=== PATIENT | male | born 1945 | race African-American/Black ===

== ENCOUNTER 2016-08-08 00:02 | Inpatient (IN) ==
[2016-08-08] MEDS ORDERED: ALUM/MAG/SIMETH/LIDO VISC 1:1 30 ML BOTTLE PO STA (00:40)
[2016-08-08] MEDS ORDERED: PANTOPRAZOLE 40 MG VIAL IV STA (00:40)
[2016-08-08] MEDS ORDERED: SODIUM CHLORIDE 0.9% 500 ML IV STA (00:40)
[2016-08-08] MEDS ORDERED: ONDANSETRON 4 MG/2 ML VIAL IV STA (00:40)
[2016-08-08] MEDS ORDERED: HYDROmorphone 2 MG/1 ML VIAL IV STA (00:40)
[2016-08-08] MEDS ORDERED: ONDANSETRON 4 MG/2 ML VIAL ONE (00:53)
[2016-08-08] MEDS ORDERED: PANTOPRAZOLE 40 MG VIAL IV ONE (00:53)
[2016-08-08] MEDS ORDERED: ALUM/MAG/SIMETH/LIDO VISC 1:1 30 ML BOTTLE PO ONE (00:54)
[2016-08-08] MEDS ORDERED: HYDROmorphone 2 MG/1 ML VIAL ONE (00:54)
[2016-08-08 01:26] LABS: Basophils % 0.2 % (0.0-0.8); Eosinophils % 0.5 % (0.00-10.9); Hematocrit 39.6 VOL% (42.0-52.0); Hemoglobin 13.2 GM/DL (14.0-18.0); Immature Granulocytes % 0.2 %; Immature Granulocytes Absolute 0.02 #; Lymphocytes # 0.7 10*3/uL (1.4-4.0); Lymphocytes % 8.1 % (21.2-54.2); Mean Corpuscular HGB Conc 33.3 GM/DL (32-36); Mean Corpuscular Hemoglobin 28 PG (27-34); Mean Corpuscular Volume 84.1 FL (87-102); Mean Platelet Volume 11.3 FL (9.6-12.0); Monocytes # 0.6 10*3/uL (0.11-0.8); Monocytes % 7.2 % (1.7-12.7); Neutrophils # 7.3 10*3/uL (1.4-7.4); Neutrophils % 83.8 % (38.7-73.9); Platelet Count 165 10*3/uL (130-400); Red Blood Count 4.71 10*6/uL (3.8-5.5); Red Cell Distribution Width 14.2 % (9.3-17.3); White Blood Count 8.7 10*3/uL (4.5-13.71)
[2016-08-08 01:30] LABS: Lactic Acid 1.2 MMOL/L (0.4-2.0)
[2016-08-08 01:33] LABS: Albumin 3.3 G/DL (3.4-5.0); Bilirubin,Total 3.2 MG/DL (0.2-1.0); Calcium 9.2 MG/DL (8.5-10.1); Magnesium 2.1 MG/DL (1.8-2.4); Osmolality,Calculated 289.7 MOS/KG (273-304); Potassium 3.8 MMOL/L (3.5-5.1); Troponin I Only 0.023 NG/ML (0.00-0.045)
--- NOTE | 2016-08-08 01:46 | Emergency Department Note ---
ITaisha Sierra, am scribing for, and in the presence of, Red Padilla MD 00:49. Randy Puga Charles R, MD, personally performed the services described in this documentation, ascribed by Debby Sumner in my presence, and it is both accurate and complete . Arrival - Arrival Chief Complaint: Abdominal / Flank Pain Stated Complaint: abd pain ED Nursing Triage Note: PT ARRIVES VIA EMS FROM HOME WITH COMPLAINTS OF ABD PAIN AFTER TAKING MAG CITRATE. STATES THAT HE HAS NOT HAD A BOWEL MOVEMENT IN THREE DAYS. PT DENIES ANY OTHER COMPLAINTS AT TIME OF TRIAGE. Mode of Arrival: Stretcher Limitations: No Limitations Source: Patient Time Seen by Provider: 08/08/16 00:28 - History of Present Illness HPI Narrative: Pt is a 71 y/o male that was brought to the ED via EMS with c/o abdomen pain that began today. Pt reports he has not had a BM in 3 days and his sxs occurred after taking magnesium citrate for BM. He denies citrate helping with BM. Pt also denies being able to pass gas. He reports it has happened before, and he has had previous bowel obstructions but no surgery for it. He denies vomiting or being constipated frequently. Pt states he had his prostate removed previously due to prostate CA but denies chemo or radiation. Pt's PCP is Dr. Howard. He has a PMHx of HTN, dyslipidemia, and Parkinson's disease but denies DM. No other complaints/pain in ED. Onset (ago): day(s) Consistency: constant Severity: mild Severity scale (1-10): 2 Allergies/Adverse Reactions: Allergies Allergy/AdvReac Type Severity Reaction Status Date / Time No Known Allergies Allergy Unverified 05/02/16 16:18 Home Medications: Home Medications Medication Instructions Recorded Confirmed Type Losartan/Hydrochlorothiazide 1 each PO DAILY 08/08/16 08/08/16 History [Losartan-Hctz 100-25 mg Tab] Rasagiline [Azilect] 1 mg PO DAILY 08/08/16 08/08/16 History Simvastatin 20 mg PO BEDTIME 08/08/16 08/08/16 History Review of System - Review of System 12 point system: reviewed and no additional remarkable complaints except as stated - Review of System Constitutional: Absent: chills, fever Respiratory: Absent: cough Cardiovascular: Absent: chest pain Gastrointestinal: Present: abdominal pain. Absent: vomiting Musculoskeletal: Absent: arm pain, back pain, leg pain, neck pain Skin: Absent: rash Neurological: Absent: headache Psychiatric: Absent: anxiety Medical,Surgical,& Family Hx - Medical History Neurology: History of: Parkinson's Disease Endocrine: History of: Dyslipidemia Genitourinary: History of: Prostate Problems - Surgical History Reproductive Surgeries: Surgical HX of;: Prostate Surgery (Prostate Ca) - Social History Smoking Status: Never smoker Frequency of Alcohol Use: None Type of Drug Use: None Exam Vital Signs: Vital Signs Temperature 98.7 F 08/08/16 00:02 Pulse Rate 90 08/08/16 01:26 Respiratory Rate 19 08/08/16 01:26 Blood Pressure 113/75 08/08/16 01:26 O2 Sat by Pulse Oximetry 94 L 08/08/16 01:26 - General General appearance: alert, in no apparent distress - Head Head exam: Present: atraumatic, normocephalic - Eye Eye exam: Present: PERRL, EOMI - ENT ENT exam: Present: mucous membranes moist. Absent: mucous membranes dry - Neck Neck exam: Present: full ROM. Absent: tenderness - Chest Chest inspection: Present: symmetric chest wall rise. Absent: tenderness - Respiratory Respiratory exam: Present: normal lung sounds bilaterally. Absent: respiratory distress - Cardiovascular Cardiovascular exam: Present: regular rate, normal rhythm, normal heart sounds - Abdominal Exam Abdominal exam: Present: distention (distended and painful). Absent: normal bowel sounds (high pitch and tinkling bowel sounds) - Extremities Exam Extremities exam: Present: full ROM. Absent: tenderness - Back Exam Back exam: Present: full ROM. Absent: tenderness - Neurological Exam Neurological exam: Present: alert, oriented X3, CN II-XII intact. Absent: motor sensory deficit - Psychiatric Psychiatric exam: Present: normal affect, normal mood - Skin Skin exam: Present: warm, dry Course - Consultations Time: 02:01 Results - Labs CBC & BMP: 08/08/16 00:55 08/08/16 00:55 Lab Results: I have reviewed the patients labs Labs: Laboratory Tests 08/08/16 00:55 Hgb 13.2 L Hct 39.6 L MCV 84.1 L Neut % (Auto) 83.8 H Lymph % (Auto) 8.1 L Lymph # (Auto) 0.7 L Laboratory Tests 08/08/16 00:55 Carbon Dioxide 33 H Creatinine 1.40 H Glucose 116 H Total Bilirubin 3.20 H AST 362 H ALT 228 H Alkaline Phosphatase 225 H Albumin 3.3 L Globulin 3.7 H Albumin/Globulin Ratio 0.8 L Disposition Clinical Impression: Gastroenteritis, Constipation, Abdominal pain, Pancreatitis, Ileus, Elevated LFTs Case discussed with: patient, patient's family Disposition: Still a Patient Condition: Stable Time of Disposition: 02:01
[2016-08-08 02:02] LABS: Apearance,Urine CLEAR (Clear); Bacteria,Urine Occasional /HPF (Few); Bilirubin,Urine Negative (Negative); Blood, Urine Negative (Negative); Glucose,Urine (UA) Negative (Negative); Ketones,Urine Negative (Negative); Nitrite,Urine Negative (Negative); Protein,Urine Negative; RBC,Urine <1 /HPF (0-4); Urine Color Yellow (Yellow); Urine Specific Gravity 1.028 (1.001-1.035); WBC,Urine 22 /HPF (0-6)
[2016-08-08] MEDS ORDERED: ACETAMINOPHEN 325 MG TABLET PO PRN (02:45)
[2016-08-08] MEDS ORDERED: ONDANSETRON 4 MG/2 ML VIAL IV PRN (02:45)
[2016-08-08] MEDS ORDERED: HYDROmorphone 2 MG/1 ML VIAL IV PRN (02:45)
[2016-08-08] MEDS: SODIUM CHLORIDE 0.9% 1,000 ML IV SCH ×2 (02:50→19:23)
[2016-08-08 05:54] LABS: Basophils % 0.1 % (0.0-0.8); Hematocrit 39.2 VOL% (42.0-52.0); Hemoglobin 12.8 GM/DL (14.0-18.0); Immature Granulocytes % 0.3 %; Immature Granulocytes Absolute 0.03 #; Lymphocytes # 0.5 10*3/uL (1.4-4.0); Lymphocytes % 5.1 % (21.2-54.2); Mean Corpuscular HGB Conc 32.7 GM/DL (32-36); Mean Corpuscular Hemoglobin 28 PG (27-34); Mean Corpuscular Volume 84.3 FL (87-102); Monocytes # 0.7 10*3/uL (0.11-0.8); Monocytes % 6.8 % (1.7-12.7); Neutrophils # 9.4 10*3/uL (1.4-7.4); Neutrophils % 87.7 % (38.7-73.9); Platelet Count 181 10*3/uL (130-400); Red Blood Count 4.65 10*6/uL (3.8-5.5); Red Cell Distribution Width 14.5 % (9.3-17.3); White Blood Count 10.7 10*3/uL (4.5-13.71)
[2016-08-08 06:23] LABS: Albumin 3.5 G/DL (3.4-5.0); Bilirubin,Total 4.6 MG/DL (0.2-1.0); Calcium 8.8 MG/DL (8.5-10.1); Osmolality,Calculated 288.7 MOS/KG (273-304); Potassium 3.6 MMOL/L (3.5-5.1); Risk Ratio 2.79; Total Protein 7.1 G/DL (6.4-8.3); VLDL CHOLESTEROL 10.2 MG/DL
--- NOTE | 2016-08-08 06:27 | XRay Report ---
History: Generalized abdominal pain Date: 08/08/2016 Study: Flat and erect abdomen Comparison exam: Abdominal x-ray September 22, 2014 There is no evidence of pneumoperitoneum. The bowel has pattern is nonspecific without gross mass lesion. No gross radiopaque calculi are seen. Penile prosthesis overlies the lower midline pelvis. There is scattered mild to moderate degenerative disease of the lumbar spine. Impression: No acute abdominal process PROCEDURE INTERPRETED AT [facility] DEPARTMENT OF RADIOLOG[facility] Final Report Signed by: Dr. Steff Moore
--- NOTE | 2016-08-08 06:42 | CT Report ---
History: Generalized abdominal pain. History of prostate cancer Date: 08/08/2016 Study: CT abdomen and pelvis with IV contrast Comparison exam: CT abdomen and pelvis September 10, 2015 Technique: Spiral CT sections were obtained from the lung bases to the pubic symphysis following 100 mL Omnipaque 350 IV. Total DLP measures 1253.8 mGy*cm. The study was also reviewed by Aimee. CT abdomen: There is mild atelectatic change in the lung bases. There is some mild intrahepatic and extrahepatic biliary dilatation which was not present on the comparison study. The common bile duct measures at least 12-13 mm diameter. There is some medium density debris in the lumen of the gallbladder which could represent gallstones or sludge. The liver is unchanged in appearance from the previous study. There is a hypervascular area in the right lobe of the liver which measures as much is 18 mm diameter superiorly in the anterior segment of the right lobe, unchanged. There is a 8-9 mm oval low density in the right lobe of the liver in the anterior segment superiorly, abutting the inferior aspect of the right hepatic vein as seen on image 30. This could represent volume averaging of a cyst or a small nonspecific solid mass. This is not seen with certainty on the comparison study. The spleen and adrenal glands are unremarkable. There is slight indistinctness of the peripancreatic fat such as that which can be seen with pancreatitis. There is no focal pancreatic mass. There is bilateral renal excretion without hydronephrosis. There is a water density cyst in the lower pole of the right kidney measuring 14 mm diameter. There is some minor heterogeneity of the enhancement of the left kidney without focal mass lesion. There is no gross renal artery stenosis of the main renal arteries. The appendix is normal. There is no loan bowel obstruction. There is no evidence of pneumoperitoneum. There is prominent degenerative disease of the lumbar spine. CT pelvis: A penile prosthesis is in place with the reservoir superior and right lateral to the bladder. There is no soft tissue mass in the pelvis otherwise. There is no significant abnormal free fluid in the pelvis. There are 2 well-defined sclerotic densities in the right iliac bone which may represent bone island formation as before. Impression: CT evidence of pancreatitis Intrahepatic and extrahepatic biliary dilatation without obvious pancreatic mass. Consider occult choledochal stone. Suspected gallstones or sludge Indeterminate 8-9 mm low-density in the right lobe of the liver anterior segment superiorly. This could represent volume averaging of a cyst or new solid mass. This is not clearly visualized on the previous study. Consider short-term followup hepatic CT in 3 months to document stability. Stable vascular malformation or hemangioma more superiorly in the right lobe of the liver Mild atelectatic changes in either lower lobe PROCEDURE INTERPRETED AT [facility] DEPARTMENT OF RADIOLOGY Final Report Signed by: Dr. Steff Moore
--- NOTE | 2016-08-08 08:10 | Family Practice History&Phys ---
Assessment and Plan (1) common duct stone Status: Acute Assessment and plan: Will repeat additional studies this a.m. and consult GI Current Visit: Yes (2) Pancreatitis Status: Acute Assessment and plan: We'll order additional studies and repeat abnormal labs have consult GI Current Visit: Yes (3) Abdominal pain Status: Acute Assessment and plan: We'll order additional studies and consult GI Current Visit: Yes (4) hyperlipidemia Status: Chronic Assessment and plan: Stable at present Current Visit: Yes (5) status post carcinoma prostate Status: Chronic Assessment and plan: Prostate has remained stable Current Visit: Yes (6) Parkinson's disease Status: Chronic Assessment and plan: Stable at present Current Visit: Yes History of Present Illness Chief complaint: abdominal pain and constipation History of present illness: Mr. Ganrett is a 71 year old male 71-year-old black male well known to me admitted to the emergency room with 3 day history of progressive abdominal pain. Patient states she's had no bowel movements in the last 3 days. Denies nausea vomiting diarrhea or other related complaints. His had a moderate amount of mid abdominal pain. Denies other related complaints.. Patient was seen emergency room and hepatic enzymes were elevated as well as amylase at 3035 and lipase at 23,247. Also noted to have elevated liver enzymes. Abdominal CT revealed intrahepatic and extrahepatic biliary dilatation with no obvious pancreatic mass. Common duct stone was considered. Also noted to have some suspected gallstones with sludge in the gallbladder. View of degree of symptoms patient was admitted for further evaluation therapy Home Medications Medication Instructions Recorded Confirmed Type Losartan/Hydrochlorothiazide 1 each PO DAILY 08/08/16 08/08/16 History [Losartan-Hctz 100-25 mg Tab] Rasagiline [Azilect] 1 mg PO DAILY 08/08/16 08/08/16 History Simvastatin 20 mg PO BEDTIME 08/08/16 08/08/16 History Allergies Allergy/AdvReac Type Severity Reaction Status Date / Time No Known Allergies Allergy Unverified 05/02/16 16:18 Medical,Surgical,& Family Hx - Medical History Neurology: History of: Parkinson's Disease, Vertigo (past history) HEENT: History of: HEENT Problems (broken nose hx) Endocrine: History of: Dyslipidemia Genitourinary: History of: Prostate Problems (hx prostatectomy) Gastrointestinal: History of: Pancreatitis - Surgical History Reproductive Surgeries: Surgical HX of;: Prostate Surgery (Prostate Ca) - Family History Family History: Reports;: Family Diabetes (mother,brother,sister), Family Heart Disease (mother), Family Hypertension (multiple family members), Family Stroke ( sister) - Social History Smoking Status: Former smoker Have you smoked in the last 12 months: No Time spent discussing smoking cessation with patient: 3 to 10 minutes Frequency of Alcohol Use: None Type of Drug Use: None Functional capacity: independent ambulation Exam - Constitutional Vitals: Period Temp Pulse Resp BP Sys/Martin Pulse Ox Last 24 Hr 98 F-98.5 F 91-93 18-20 131-133/79-88 95-96 General appearance: no acute distress - Head Head exam: Present: normal inspection - Eye Pupils: Present: JACQUELINE - ENT ENT exam: Present: normal exam - Neck Neck exam: Present: normal inspection - Respiratory Respiratory exam: Present: clear to auscultation bilaterally - Cardiovascular Cardiovascular exam: Present: regular rate and rhythm - GI/Abdominal GI/Abdominal exam: Present: hyperactive bowel sounds, tenderness (tenderness over the mid abdomen on palpation no guarding or rebound) - Extremities Exam Extremities exam: Present: normal inspection - Back Exam Back exam: Present: normal inspection - Neurological Exam Neurological exam: Present: alert, oriented X3 - Psychiatric Psychiatric exam: Present: normal affect - Skin Skin exam: Present: normal color Results - Labs CBC & BMP: 08/08/16 04:41 08/08/16 04:41
[2016-08-08] MEDS ORDERED: PNEUMOCOCCAL VACCINE (13 VALENT) 0.5 ML SYRINGE IM ONE (09:00)
[2016-08-08] MEDS: DOCUSATE SODIUM 100 MG CAPSULE PO SCH ×2 (09:58→21:06)
[2016-08-08] MEDS: PANTOPRAZOLE 40 MG VIAL IV SCH (10:01)
--- NOTE | 2016-08-08 11:22 | Gastrointestinal Consult Note ---
<Yara Parks - Last Filed: 08/08/16 11:13> Assessment and Plan (1) Abdominal pain Status: Acute Assessment and plan: 19-3 day history of upper abd pain radiating to LUQ. Findings on admission of pancreatitis and CT findings of dilated CBD with elevated lipase and LFTs. Abd US an HIDA scan pending at present time. Plan and addendum to follow by DR Mcbride. Current Visit: Yes History of Present Illness Chief complaint: Pancreatitis, gallstones History of present illness: Mr. Garnett is a 71 year old male who presented to the hospital with three day history of abdominal pain. Pt states that he was in his usual state of health until three days ago when he had an onset of upper abdominal pain that radiated across his left upper abdomen. He states the pain was a constant, dull ache and at times was more severe with movement. He denies any associated symptoms along with this including nausea, vomiting. He denies any fever, chills or recent weight loss. States that his bowels hadnt moved in several days and felt it was possibly related to this and took laxatives at home with no relief. He decided to present to the hospital for further evaluation. Pt states that he has had this pain in the past but not this severe and was given a medication that helped in the clinic. He states that the pain did not seem to be necessarily precipitated by eating. [place] [address] and elevated amylase at 4425. He was also found to have elevated LFTs which he denies any history of liver disease in the past. Esha any tobacco or alcohol use. CT of abdomen showed evidence of pancreatitis, intrahepatic and extrahepatic biliary dilation w/o obvious mass and suspected gallstones or sludge with CBD at 1.2-1.3cm. Also noted area of low density in right lobe of liver abutting right hepatic vein. He did have a large bowel movement this morning after magnesium citrate. He brought forth that his recently last January from pancreatic cancer. Home Medications Medication Instructions Recorded Confirmed Type Losartan/Hydrochlorothiazide 1 each PO DAILY 08/08/16 08/08/16 History [Losartan-Hctz 100-25 mg Tab] Rasagiline [Azilect] 1 mg PO DAILY 08/08/16 08/08/16 History Simvastatin 20 mg PO BEDTIME 08/08/16 08/08/16 History Allergies Allergy/AdvReac Type Severity Reaction Status Date / Time No Known Allergies Allergy Unverified 05/02/16 16:18 Medical,Surgical,& Family Hx - Medical History Neurology: History of: Parkinson's Disease, Vertigo (past history) HEENT: History of: HEENT Problems (broken nose hx) Endocrine: History of: Dyslipidemia Genitourinary: History of: Prostate Problems (hx prostatectomy) Gastrointestinal: History of: Pancreatitis - Surgical History Reproductive Surgeries: Surgical HX of;: Prostate Surgery (Prostate Ca) - Family History Family History: Reports;: Family Diabetes (mother,brother,sister), Family Heart Disease (mother), Family Hypertension (multiple family members), Family Stroke ( sister) - Social History Smoking Status: Former smoker Frequency of Alcohol Use: None Type of Drug Use: None 12 point system: reviewed and no additional remarkable complaints except as stated - Constitutional Constitutional: Present: as per HPI - EENT Eyes: Present: as per HPI Ears: Present: as per HPI Nose, mouth and throat: Present: as per HPI - Cardiovascular Cardiovascular: Present: as per HPI - Respiratory Respiratory: Present: as per HPI - Gastrointestinal Gastrointestinal: Present: as per HPI, abdominal pain - Genitourinary Genitourinary: Present: as per HPI - Musculoskeletal Musculoskeletal: Present: as per HPI - Neurological Neurological: Present: as per HPI - Psychiatric Psychiatric: Present: as per HPI - Endocrine Endocrine: Present: as per HPI - Hematologic/Lymphatic Hematologic/Lymphatic: Present: as per HPI Exam - Constitutional Vitals: Period Temp Pulse Resp BP Sys/Martin Pulse Ox Last 24 Hr 97.8 F-98.5 F 83-93 18-20 131-153/79-88 95-96 General appearance: normal weight, no acute distress - Head Head exam: Present: normal inspection, normocephalic - Eye Eye exam: Present: other (lids and conjunctiva unremarakble). Absent: scleral icterus - ENT ENT exam: Present: normal exam, normal oropharynx - Neck Neck exam: Present: normal inspection - Respiratory Respiratory exam: Present: clear to auscultation bilaterally. Absent: rales, rhonchi, wheezes - Cardiovascular Cardiovascular exam: Present: regular rate and rhythm. Absent: diastolic murmur , JVD, systolic murmur - GI/Abdominal GI/Abdominal exam: Present: normal bowel sounds, tenderness, soft. Absent: ascites, distended, mass, organomegaly - Extremities Exam Extremities exam: Present: normal inspection, full ROM - Back Exam Back exam: Present: normal inspection - Neurological Exam Neurological exam: Present: alert, oriented X3 - Psychiatric Psychiatric exam: Present: normal affect, normal mood - Skin Skin exam: Present: normal color, warm, dry Results - Labs CBC & BMP: 08/08/16 04:41 08/08/16 04:41 Lab Results: I have reviewed the past 24 hour labs - Diagnostic Findings Procedure: CT Abdomen and Pelvis: report reviewed by me Specialty Discharge - Follow Up or Referrals - Discharge Medications No Action Simvastatin 20 mg PO BEDTIME Losartan/Hydrochlorothiazide [Losartan-Hctz 100-25 mg Tab] 1 each PO DAILY Rasagiline [Azilect] 1 mg PO DAILY <Richard Mcbride - Last Filed: 08/08/16 17:38> History of Present Illness History of present illness: Mr. Garnett is a 71 year old male Exam - Constitutional Vitals: Period Temp Pulse Resp BP Sys/Martin Pulse Ox Last 24 Hr 97.8 F-98.6 F 76-93 18-20 116-153/65-88 95-96 Results - Labs CBC & BMP: 08/08/16 04:41 08/08/16 04:41
--- NOTE | 2016-08-08 14:47 | Nuclear Medicine Report ---
History: Elevated liver enzymes Date: 08/08/2016 Study: Nuclear medicine hepatobiliary scan without gallbladder ejection fraction Comparison exam: No previous HIDA scan Following the IV administration of 5 mCi technetium 99m Choletec, there is homogeneous uptake of the radiotracer throughout the liver. There is nonvisualization of activity within the gallbladder, biliary tree, and duodenum for over 2 hours. Impression: Nonvisualization of biliary excretion. The gallbladder and biliary tree are not identified at 2 hours. This appearance can be seen with prominent common bile duct obstruction and severe hepatocellular disease PROCEDURE INTERPRETED AT [facility] DEPARTMENT OF RADIOLOGY Final Report Signed by: Dr. Steff Moore
[2016-08-08] MEDS: RASAGILINE 0.5 MG TABLET PO SCH (14:58)
[2016-08-08] MEDS: LOSARTAN/HCTZ 50-12.5 MG TABLET PO SCH (14:58)
--- NOTE | 2016-08-08 15:09 | XRay Report ---
XR chest 2V Indication: SOB Comparison: Chest x-ray dated September 22, 2014 Technique: Frontal and lateral views of the chest Findings: Cardiomediastinal silhouette is stable in configuration. Chronic changes of the lungs present without focal consolidation, pleural effusion, or pneumothorax. Osseous and surrounding soft tissue structures appear grossly unchanged. IMPRESSION: Stable chest x-ray without acute cardiopulmonary process demonstrated. PROCEDURE INTERPRETED AT [facility] DEPARTMENT OF RADIOLOGY Final Report Signed by: Dr Sd Wheeler
--- NOTE | 2016-08-08 15:24 | Ultrasound Report ---
Exam: US gallbladder Date: 08/08/2016 4:00 AM Comparison: CT abdomen and pelvis/nuclear medicine hepatobiliary scan 08/08/2016 Indication: Abnormal liver enzymes, evaluate common bile Technique: Multiple transabdominal real-time scans were obtained in the right upper quadrant. Color flow scans were obtained. Ultrasound images were captured and stored. Findings: Multiple hyperechoic foci are noted in the gallbladder with posterior acoustical shadowing. The wall of the gallbladder measures 2 mm. Reported negative sonographic Falcon's sign. Dilated CBD measuring 7 mm. The liver is normal in size with 11 mm echogenic solid mass projecting in the right lobe. The right kidney measures 109 mm in length without hydronephrosis or mass. The pancreas, aorta including the aortic bifurcation, and IVC are obscured by bowel gas. Impression: Cholelithiasis. Dilatation of bile ducts with CBD measuring 7 mm. The distal duct and pancreas are obscured by bowel gas and ERCP may be helpful for further evaluation. 11 mm possible hepatic hemangioma which could be evaluated with followup CT. The pancreas and aorta are obscured by bowel gas. PROCEDURE INTERPRETED AT [facility] DEPARTMENT OF RADIOLOGY Final Report Signed by: Dr. Tonia Lara
--- NOTE | 2016-08-08 15:59 | XRay Report ---
Exam: XR abdomen 2V Date: 08/08/2016 4:00 AM Comparison: 08/08/2016 Indication: Generalized abdominal pain Technique: Supine and erect abdomen Findings: Nonobstructed bowel gas pattern with no free air. Penile implant noted with degenerative changes. Stable sclerotic findings. Atelectasis at the lung bases. Impression: Nonobstructed bowel gas pattern with no free air. Penile implant. Retained contrast in urinary tract from recent CT. PROCEDURE INTERPRETED AT [facility] DEPARTMENT OF RADIOLOGY Final Report Signed by: Dr. Tonia Lara
[2016-08-08] MEDS: CIPROFLOXACIN INJ 400 MG in PREMIX 1 EACH IV SCH (18:10)
[2016-08-08 18:27] LABS: Apearance,Urine Slightly Hazy (Clear); Bacteria,Urine Occasional /HPF (Few); Bilirubin,Urine Negative (Negative); Blood, Urine Negative (Negative); Glucose,Urine (UA) Negative (Negative); Ketones,Urine Negative (Negative); Nitrite,Urine Negative (Negative); Protein,Urine Negative; RBC,Urine <1 /HPF (0-4); Urine Specific Gravity 1.015 (1.001-1.035); WBC,Urine 5 /HPF (0-6)
[2016-08-08 18:28] LABS: Urine Color Yellow (Yellow)
[2016-08-08] MEDS: SIMVASTATIN 20 MG TABLET PO SCH (21:06)
[2016-08-09] MEDS: SODIUM CHLORIDE 0.9% 1,000 ML IV SCH ×2 (03:40→14:46)
[2016-08-09] MEDS: CIPROFLOXACIN INJ 400 MG in PREMIX 1 EACH IV SCH ×2 (05:43→17:50)
[2016-08-09 05:58] LABS: Basophils % 0.2 % (0.0-0.8); Eosinophils # 0.2 10*3/uL (0.0-0.87); Eosinophils % 4.9 % (0.00-10.9); Hematocrit 32.2 VOL% (42.0-52.0); Hemoglobin 10.4 GM/DL (14.0-18.0); Immature Granulocytes % 0.4 %; Immature Granulocytes Absolute 0.02 #; Lymphocytes # 0.8 10*3/uL (1.4-4.0); Mean Corpuscular HGB Conc 32.3 GM/DL (32-36); Mean Corpuscular Hemoglobin 28 PG (27-34); Mean Corpuscular Volume 85.2 FL (87-102); Mean Platelet Volume 11.8 FL (9.6-12.0); Monocytes # 0.4 10*3/uL (0.11-0.8); Monocytes % 8.2 % (1.7-12.7); Neutrophils # 3.2 10*3/uL (1.4-7.4); Neutrophils % 68.3 % (38.7-73.9); Platelet Count 144 10*3/uL (130-400); Red Blood Count 3.78 10*6/uL (3.8-5.5); Red Cell Distribution Width 14.7 % (9.3-17.3); White Blood Count 4.7 10*3/uL (4.5-13.71)
[2016-08-09 05:59] LABS: INR 1.1; PT Patient Result 11.7 SECS
[2016-08-09 06:24] LABS: Albumin 2.7 G/DL (3.4-5.0); Calcium 8.6 MG/DL (8.5-10.1); Free T4 (Free Thyroxine) 1.21 NG/DL (0.76-1.46); Magnesium 2.1 MG/DL (1.8-2.4); Osmolality,Calculated 286.7 MOS/KG (273-304); Potassium 3.1 MMOL/L (3.5-5.1); Risk Ratio 2.14; Thyroid Stimulating Hormone 0.196 uIU/ml (0.358-3.74); Total Protein 5.8 G/DL (6.4-8.3); VLDL CHOLESTEROL 10.2 MG/DL
--- NOTE | 2016-08-09 07:42 | EKG Report ---
Stationary ECG Study [facility] Test Date: 08/09/2016 7:41:14 AM Pat Name: ALIE BAUMAN Department: Room: 279 Gender: M Gl Accountant: CHELE : 1945 Requested by: Zina Garcia Order Number: [id number] Reading MD: DUARTE CHAVEZ Intervals Dailey Rate: 61 P: 46 AZ: 163 QRS: 5 QRSD: 90 T: -25 QT: 381 QTc: 385 Interpretive Statements SINUS RHYTHM Electronically Signed On 08-09-16 20:48:21 AUDIO PRODUCTION ENGINEER by DUARTE CHAVEZ [email or web address]
--- NOTE | 2016-08-09 08:27 | Family Practice Progress Note ---
Family Practice - PN: Subj Interval history: Patient feels better this a.m. denies any nausea vomiting or diarrhea. No real abdominal pain today although has some tenderness on palpation over the right upper quadrant and epigastric region. Reviewed lab and x-ray studies. Potassium 3.1 side started on IV potassium supplementation and will repeat lab in a.m.. Liver enzymes are still elevated but improved. Amylase and lipase are also improved. Biliary scan reveals nonvisualization of the gallbladder. Patient is scheduled for an ERCP this a.m.. We'll await the results from this procedure. May need surgery to evaluate gallbladder view after ERCP Exam (Progress Note) - Constitutional Vitals: Period Temp Pulse Resp BP Sys/Martin Pulse Ox Last 24 Hr 98.4 F-99.2 F 66-84 16-20 116-135/65-88 95-97 Results - Labs CBC & BMP: 08/09/16 05:22 08/09/16 05:22 Assessment and Plan (1) common duct stone Status: Acute Assessment and plan: Will repeat additional studies this a.m. and consult GI Current Visit: Yes (2) Pancreatitis Status: Acute Assessment and plan: We'll order additional studies and repeat abnormal labs have consult GI Current Visit: Yes (3) Abdominal pain Status: Acute Assessment and plan: We'll order additional studies and consult GI Current Visit: Yes (4) hyperlipidemia Status: Chronic Assessment and plan: Stable at present Current Visit: Yes (5) status post carcinoma prostate Status: Chronic Assessment and plan: Prostate has remained stable Current Visit: Yes (6) Parkinson's disease Status: Chronic Assessment and plan: Stable at present Current Visit: Yes Specialty Discharge - Follow Up or Referrals - Discharge Medications No Action Simvastatin 20 mg PO BEDTIME Losartan/Hydrochlorothiazide [Losartan-Hctz 100-25 mg Tab] 1 each PO DAILY Rasagiline [Azilect] 1 mg PO DAILY
[2016-08-09] MEDS: SODIUM CHLOR 0.9% KCL 20 MEQ 20 MEQ/1,000 ML BAG IV SCH ×2 (09:31→22:51)
[2016-08-09] MEDS ORDERED: MIDAZOLAM 2 MG/2 ML VIAL ONE (11:22)
[2016-08-09] MEDS ORDERED: fentaNYL 100 MCG/2 ML VIAL ONE (11:22)
[2016-08-09] MEDS ORDERED: ONDANSETRON 4 MG/2 ML VIAL ONE (11:30)
[2016-08-09] MEDS ORDERED: PROPOFOL 200 MG/20 ML VIAL IV ONE (11:30)
[2016-08-09] MEDS ORDERED: LIDOCAINE 1% 5 ML VIAL ONE (11:30)
--- NOTE | 2016-08-09 12:15 | History and Physical Update ---
History and Physical Update - Physical Exam Mental Status: alert and oriented Heart: regular rate and rhythm Lung: clear to auscultation Abdomen: within normal limits Vitals: within normal limits
--- NOTE | 2016-08-09 12:17 | Operative Note ---
Date of procedure: 08/09/16 Pre-op diagnosis: gallstone pancreatitis Procedure: Endoscopic retrograde range of pain and photography with sphincterotomy and balloon stone extraction 71-year-old gentleman with gallstone pancreatitis HIDA scan showed nonvisualization of the biliary tree and dilatation of the common bile duct noted on CT now for ERCP to further evaluate. Informed percent was obtained the pain patient. He was sedated with general anesthesia per anesthesia protocol due to poor airway control. Patient placed prone position the Olympus duodenal scope through the oral cavity under direct vision the esophagus was intubated esophagus stomach and duodenum appeared grossly normal ampulla was normal. The common bile duct was cannulated revealing filling defects consistent with choledocholithiasis. The common bile duct is dilated. Cystic duct was patent. No intrahepatic or common hepatic duct abnormalities or obstruction was identified. It was elected to proceed with sphincterotomy and an 8 mm sphincterotomy was performed with good hemostasis. Subsequently a balloon cath was inserted herve hepatis inflated 12 mm through the duodenum with removal of some sludge-type debris. No pancreatogram was obtained. The procedure was terminated patient our procedure well his discharge recovery in good condition. Postoperative diagnosis: #1 choledocholithiasis status post successful ERCP sphincterotomy with removal of stone debris. #2 cholelithiasis proceed with cholecystectomy per surgery Anesthesia: GETA Surgeon / Physician: Richard Mcbride Estimated blood loss: none Specimens: none sent Condition: stable Disposition: post procedure unit Results - Labs CBC & BMP: 08/09/16 05:22 08/09/16 05:22 Discharge Plan - Discharge Medications No Action Simvastatin 20 mg PO BEDTIME Losartan/Hydrochlorothiazide [Losartan-Hctz 100-25 mg Tab] 1 each PO DAILY Rasagiline [Azilect] 1 mg PO DAILY - Follow Up or Referral - Forms/Instructions
--- NOTE | 2016-08-09 12:38 | Anesthesia ---
Anesthesia Post OP - Post Ansesthetic Evaluation Patient seen in post op: Yes Resp: within normal limits CV: within normal limits Mental: within normal limits Temp: within normal limits Qbtn-Md-Exsdynbyu: within normal limits Nausea and Vomiting: within normal limits Pain: within normal limits
--- NOTE | 2016-08-09 14:29 | Physician Query Form ---
CLICK EDIT DOCUMENT TO SELECT QUERY ANSWER --> OK --> SIGN Janneth Lee RN, CCDS Certified Clinical Fireperson W) [phone] (f) [phone] [email or web address] PROVIDERS: Make your selection(s) from the choices in EACH section by typing an "x" and enter comments in the comment section. Please use your independent medical judgment in providing your response. This request does not imply that any particular answer is desired or expected. CLINICAL INDICATORS: (Providers should not edit this section) The medical record indicates that the patient was admitted with cholelithiasis, Urine CS is positive for > 100,000 Gram Negative Rods, Urine WBC of 22, Urine Leukocytes small and the patient is on Ciprofloxacin. Based on the above, could you clarify the appropriate diagnosis, if significant , that supports the above abnormalities and additional evaluation, monitoring, and/or treatment rendered: ( ) Patient is being monitored or treated for UTI ( ) Patient is not being monitored or treated for UTI ( ) Other, please specify: ( ) Clinically unable to determine COMMENTS: Use of terms such as suspected, likely, or probable (associated with a specific diagnosis that is being evaluated, monitored, or treated as if it exists) are acceptable and can be restated in the discharge summary if not ruled out. MTDD
[2016-08-09] MEDS: PANTOPRAZOLE 40 MG VIAL IV SCH (14:36)
[2016-08-09] MEDS: DOCUSATE SODIUM 100 MG CAPSULE PO SCH ×2 (14:38→21:03)
[2016-08-09] MEDS: RASAGILINE 0.5 MG TABLET PO SCH (14:42)
[2016-08-09] MEDS: LOSARTAN/HCTZ 50-12.5 MG TABLET PO SCH (14:43)
--- NOTE | 2016-08-09 15:04 | Fluoroscopy Report ---
Exam: FL ERCP w sphincterotomy Date: 08/09/2016 9:21 AM Comparison: CT 08/08/2016 Indication: Gallstones, gallstone pancreatitis, dilated ducts on CT Technique: Fluoroscopy time of 4 minutes 31 seconds documented. 16 cc of Omnipaque 240 injected during the procedure. Findings: Dilatation of the bile ducts with filling defects noted. Sphincterotomy performed with insertion of balloon catheter with removal of sludge/stones. Contrast noted in the cystic duct. There is some drainage of the contrast from the duct on the final film with no significant contrast in the duodenum. Impression: Choledocholithiasis with bile duct dilatation and stone removal. PROCEDURE INTERPRETED AT [facility] DEPARTMENT OF RADIOLOGY Final Report Signed by: Dr. Tonia Lara
--- NOTE | 2016-08-09 17:24 | General Surgery Consult Note ---
Assessment and Plan (1) Pancreatitis Status: Acute Assessment and plan: Impression: Gallstone pancreatitis status post ERCP Plan: Patient is currently asymptomatic. LFTs improving. His lipase is normalizing. He has no tenderness on exam. I discussed his diagnosis and the need for cholecystectomy with the patient to prevent further episodes of choledocholithiasis. I discussed the procedure and how it is performed and the anticipated recovery. The risk of the procedure including bleeding, infection, damage to surrounding structures, need for further surgery, injury to the biliary tree were all discussed in detail and he wants to proceed as soon as possible. We'll make him nothing by mouth and plan for surgery in the morning. Current Visit: Yes History of Present Illness Chief complaint: consulted for gallstone pancreatitis History of present illness: Mr. Garnett is a 71 year old male was admitted by Dr. Howard and found to have gallstone pancreatitis. He underwent successful ERCP earlier today. Consult received by Dr. Mcbride to proceed with cholecystectomy. Stone fragments were identified with ERCP. Currently the patient is asymptomatic. He has no further abdominal pain. He's not had any nausea or vomiting. He is wondering when he is going to be able to go home. He denies chest pain and shortness of breath. He denies fever. He's overall been feeling well today. He has a history of prostate cancer and from his surgical scars it looks like he underwent a robotic prostatectomy. Home Medications Medication Instructions Recorded Confirmed Type Losartan/Hydrochlorothiazide 1 each PO DAILY 08/08/16 08/08/16 History [Losartan-Hctz 100-25 mg Tab] Rasagiline [Azilect] 1 mg PO DAILY 08/08/16 08/08/16 History Simvastatin 20 mg PO BEDTIME 08/08/16 08/08/16 History Allergies Allergy/AdvReac Type Severity Reaction Status Date / Time No Known Allergies Allergy Unverified 05/02/16 16:18 Medical,Surgical,& Family Hx - Medical History Neurology: History of: Parkinson's Disease, Vertigo (past history) HEENT: History of: HEENT Problems (broken nose hx) Endocrine: History of: Dyslipidemia Genitourinary: History of: Prostate Problems (hx prostatectomy) Gastrointestinal: History of: Pancreatitis - Surgical History Reproductive Surgeries: Surgical HX of;: Prostate Surgery (Prostate Ca) - Family History Family History: Reports;: Family Diabetes (mother,brother,sister), Family Heart Disease (mother), Family Hypertension (multiple family members), Family Stroke ( sister) - Social History Smoking Status: Former smoker Frequency of Alcohol Use: None Type of Drug Use: None 12 point system: reviewed and no additional remarkable complaints except as stated Exam - Constitutional Vitals: Period Temp Pulse Resp BP Sys/Martin Pulse Ox Last 24 Hr 96.6 F-99.2 F 58-74 11-20 113-132/64-81 92-100 General appearance: no acute distress - Head Head exam: Present: normocephalic - Neck Neck exam: Present: normal inspection - Respiratory Respiratory exam: Present: clear to auscultation bilaterally - Cardiovascular Cardiovascular exam: Present: RRR - GI/Abdominal GI/Abdominal exam: Present: soft (nontender and nondistended. I do not elicit any abdominal tenderness at all.) - Neurological Exam Neurological exam: Present: alert, oriented X3 Speech: Present: normal - Skin Skin exam: Present: normal color Results - Labs CBC & BMP: 08/09/16 05:22 08/09/16 05:22 Lab Results: I have reviewed the past 24 hour labs Specialty Discharge - Follow Up or Referrals - Discharge Medications No Action Simvastatin 20 mg PO BEDTIME Losartan/Hydrochlorothiazide [Losartan-Hctz 100-25 mg Tab] 1 each PO DAILY Rasagiline [Azilect] 1 mg PO DAILY
[2016-08-09] MEDS: SIMVASTATIN 20 MG TABLET PO SCH (21:02)
[2016-08-10 05:22] LABS: Basophils % 0.3 % (0.0-0.8); Eosinophils # 0.2 10*3/uL (0.0-0.87); Eosinophils % 6.4 % (0.00-10.9); Hematocrit 32.7 VOL% (42.0-52.0); Hemoglobin 10.7 GM/DL (14.0-18.0); Immature Granulocytes % 0.3 %; Immature Granulocytes Absolute 0.01 #; Lymphocytes # 0.9 10*3/uL (1.4-4.0); Lymphocytes % 22.8 % (21.2-54.2); Mean Corpuscular HGB Conc 32.7 GM/DL (32-36); Mean Corpuscular Hemoglobin 28 PG (27-34); Mean Corpuscular Volume 85.2 FL (87-102); Mean Platelet Volume 11.2 FL (9.6-12.0); Monocytes # 0.3 10*3/uL (0.11-0.8); Monocytes % 8.5 % (1.7-12.7); Neutrophils # 2.3 10*3/uL (1.4-7.4); Neutrophils % 61.7 % (38.7-73.9); Platelet Count 143 10*3/uL (130-400); Red Blood Count 3.84 10*6/uL (3.8-5.5); Red Cell Distribution Width 14.6 % (9.3-17.3); White Blood Count 3.8 10*3/uL (4.5-13.71)
[2016-08-10] MEDS ORDERED: FAMOTIDINE 20 MG/2 ML VIAL IV ONE (05:46)
[2016-08-10] MEDS ORDERED: DIAZEPAM 5 MG TABLET PO ONE (05:48)
[2016-08-10] MEDS: CIPROFLOXACIN INJ 400 MG in PREMIX 1 EACH IV SCH ×2 (05:53→18:01)
[2016-08-10 05:58] LABS: Albumin 2.5 G/DL (3.4-5.0); Bilirubin,Total 0.9 MG/DL (0.2-1.0); Calcium 8.3 MG/DL (8.5-10.1); Osmolality,Calculated 286.7 MOS/KG (273-304); Potassium 3.5 MMOL/L (3.5-5.1); Total Protein 5.7 G/DL (6.4-8.3)
[2016-08-10] MEDS ORDERED: BUPIVACAINE MPF 0.25% /EPI 30 ML VIAL ONE (06:35)
[2016-08-10] MEDS ORDERED: LIDOCAINE 1%/EPI INJ 20 ML VIAL ONE (06:35)
[2016-08-10] MEDS: LACTATED RINGERS 1,000 ML IV SCH ×2 (06:58→08:15)
[2016-08-10] MEDS ORDERED: LIDOCAINE 2% 5 ML VIAL ONE (07:00)
[2016-08-10] MEDS ORDERED: ONDANSETRON 4 MG/2 ML VIAL ONE (07:00)
[2016-08-10] MEDS ORDERED: PROPOFOL 200 MG/20 ML VIAL IV ONE (07:00)
[2016-08-10] MEDS ORDERED: DEXAMETHASONE 10 MG/1 ML VIAL ONE (07:00)
[2016-08-10] MEDS ORDERED: PHENYLEPHRINE 1 MG/10 ML SYRINGE IV ONE (07:00)
[2016-08-10] MEDS ORDERED: GLYCOPYRROLATE 0.4 MG/2 ML VIAL ONE (07:00)
[2016-08-10] MEDS ORDERED: NEOSTIGMINE 10 MG/10 ML VIAL ONE (07:00)
[2016-08-10] MEDS ORDERED: ROCURONIUM 100 MG/10 ML VIAL IV ONE (07:00)
[2016-08-10] MEDS ORDERED: KETOROLAC 30 MG/1 ML VIAL ONE (07:00)
--- NOTE | 2016-08-10 09:21 | Fluoroscopy Report ---
Intraoperative cholangiogram Indication: Cholecystectomy, common bile duct calculi Findings: Fluoroscopic imaging was used during intraoperative cholangiogram postcholecystectomy. There is normal filling of the bile ducts and passage of contrast into the small bowel. No filling defects are identified. Fluoroscopy time 115 seconds Impression: No evidence of abnormality seen. PROCEDURE INTERPRETED AT [facility] DEPARTMENT OF RADIOLOGY Final Report Signed by: Dr. Radames Singer
--- NOTE | 2016-08-10 09:42 | Anesthesia ---
Anesthesia Post OP - Post Ansesthetic Evaluation Patient seen in post op: Yes Resp: within normal limits CV: within normal limits Mental: within normal limits Temp: within normal limits Alnh-Zi-Nnxyhlkxx: within normal limits Nausea and Vomiting: within normal limits Pain: within normal limits
[2016-08-10] MEDS ORDERED: SEVOFLURANE 1 UNIT/15 MINUTE INH ONE (09:43)
[2016-08-10] MEDS ORDERED: ACETAMINOPHEN 1,000 MG/100 ML VIAL IV ONE (09:43)
[2016-08-10] MEDS ORDERED: LACTATED RINGERS 1,000 ML IV ONE (09:43)
[2016-08-10] MEDS ORDERED: MIDAZOLAM 2 MG/2 ML VIAL ONE (09:43)
[2016-08-10] MEDS ORDERED: fentaNYL 100 MCG/2 ML VIAL ONE (09:43)
--- NOTE | 2016-08-10 09:50 | Operative Note ---
Date of procedure: 08/10/16 Procedure: Dr. Vick requested help during the course of an open cholecystectomy with evaluation of the distal gallbladder and common bile duct. I assisted him throughout the course of the procedure which involved removal of the proximal of the upper gallbladder evaluation and common bile duct exploration with choledochoscopy insertion of the T-tube and the remaining gallbladder. I remained for the T-tube cholangiogram which appears to be normal T-tube good position good filling of the common hepatic duct and common bile duct emptying into the duodenum and no sign of leakage. Dr. Vick then completed the closure of the incision and placement of drain Surgeon / Physician: John Argueta Results - Labs CBC & BMP: 08/10/16 05:04 08/10/16 05:04 Discharge Plan - Discharge Medications No Action Simvastatin 20 mg PO BEDTIME Losartan/Hydrochlorothiazide [Losartan-Hctz 100-25 mg Tab] 1 each PO DAILY Rasagiline [Azilect] 1 mg PO DAILY - Follow Up or Referral - Forms/Instructions
[2016-08-10] MEDS: SODIUM CHLOR 0.9% KCL 20 MEQ 20 MEQ/1,000 ML BAG IV SCH ×2 (09:58→18:01)
--- NOTE | 2016-08-10 10:50 | Gastrointestinal Progress Note ---
<KaseyYara Brianne - Last Filed: 08/10/16 10:46> Assessment and Plan (1) Abdominal pain Status: Acute Assessment and plan: 08/10-Immediate post op open cholecystectomy, intraoperative cholangiogram. LFTs trending down as well as lipase. Plan and addendum to follow by Dr Mcbride. 08/08-3 day history of upper abd pain radiating to LUQ. Findings on admission of pancreatitis and CT findings of dilated CBD with elevated lipase and LFTs. Abd US an HIDA scan pending at present time. Plan and addendum to follow by DR Mcbride. Current Visit: Yes Gastroenterology - PN: Subj Interval history: CC: Gallstone pancreatitis Pt is seen, just returning from recovery following open cholecystectomy this morning. Intraoperative cholangogram with no evidence of abnormality seen. He is resting comfortably at present with minimal post operative pain. Lipase is down at 2356 today and LFTs continue to trend downward. Abdomen is soft, tender to palpation. ROS: Denies SOB or chest pain Exam (Progress Note) - Constitutional Vitals: Period Temp Pulse Resp BP Sys/Martin Pulse Ox Last 24 Hr 96.6 F-99.5 F 58-84 11-20 113-145/64-88 92-100 General appearance: normal weight, no acute distress - Head Head exam: Present: normal inspection, normocephalic - Eye Eye exam: Present: other (lids and conjunctiva unremarkable). Absent: scleral icterus - ENT ENT exam: Present: normal exam, normal oropharynx - Neck Neck exam: Present: normal inspection - Respiratory Respiratory exam: Present: clear to auscultation bilaterally. Absent: rales, rhonchi, wheezes - Cardiovascular Cardiovascular exam: Present: regular rate and rhythm. Absent: diastolic murmur , JVD, systolic murmur - GI/Abdominal GI/Abdominal exam: Present: normal bowel sounds, tenderness, soft. Absent: ascites, distended, mass, organomegaly - Extremities Exam Extremities exam: Present: normal inspection, full ROM - Back Exam Back exam: Present: normal inspection - Neurological Exam Neurological exam: Present: alert, oriented X3 - Psychiatric Psychiatric exam: Present: normal affect, normal mood - Skin Skin exam: Present: normal color, warm, dry Results - Labs CBC & BMP: 08/10/16 05:04 08/10/16 05:04 Lab Results: I have reviewed the past 24 hour labs <Richard Mcbride - Last Filed: 08/10/16 20:31> Exam (Progress Note) - Constitutional Vitals: Period Temp Pulse Resp BP Sys/Martin Pulse Ox Last 24 Hr 97.6 F-99.5 F 69-84 16-20 118-154/69-94 91-96 Results - Labs CBC & BMP: 08/10/16 05:04 08/10/16 05:04
[2016-08-10] MEDS: DOCUSATE SODIUM 100 MG CAPSULE PO SCH ×3 (11:07→22:06)
[2016-08-10] MEDS: PANTOPRAZOLE 40 MG VIAL IV SCH (11:08)
[2016-08-10] MEDS: RASAGILINE 0.5 MG TABLET PO SCH (13:16)
[2016-08-10] MEDS: LOSARTAN/HCTZ 50-12.5 MG TABLET PO SCH (13:17)
--- NOTE | 2016-08-10 14:56 | Operative Note ---
Date of procedure: 08/10/16 Pre-op diagnosis: choledocholithiasis status post ERCP Post-op diagnosis: same (acute and chronic cholecystitis as well, Mirizzi syndrome) Procedure: Procedure performed: #1 laparoscopic converted to open cholecystectomy #2 intraoperative cholangiogram #3, and bile duct exploration with choledochotomy the #4 placement of T-tube #5 modifier 22 Procedure in detail: After informed consent was obtained, the patient was taken operating suite placed prone operating table. After general anesthesia was induced, the abdomen was prepped and draped in usual sterile fashion. After procedural pause local anesthetic infiltrated in the skin and soft tissue above the umbilicus. Incision was made and dissection carried down through skin and soft tissue. Around the umbilicus there was a hernia. I opened the fascia more caudal to this and normal appearing fascia and bluntly entered the abdominal cavity. Finger sweep revealed there were no adhesions. German trocar placed under direct visualization and pneumoperitoneum achieved. Camera inserted and bowel mesentery inspected found be free of any violation. Next patient's patient reverse Trendelenburg position and rotated to the left. 5 mm trochars were placed the right upper quadrant and an 11 mm trocar was placed under direct visualization. The gallbladder identified it was contracted and appeared to be full of gallstones. There was some acute inflammation as well. It was retracted superiorly. Infundibulum the gallbladder retracted toward the right hip. Dissection was then carried out from a lateral to medial approach at the triangle of [place]. A small venule began using with dissection was clipped. I attempted to dissect a window below the bottom of the gallbladder between the gallbladder and ductal structures to better isolate the apparent cystic duct. In doing so there is a small hole noted in what was thought to be the gallbladder. A clamp was placed across the gallbladder neck and a cholangiocatheter inserted and secured. Intraoperative cholangiogram performed and there was filling of the common bile duct but no other structure. Then suspected that this small opening may be in the common bile duct and a converted to an open procedure. The trochars were removed and the patient was flattened. The fascia at the German trocar site was closed using 0 Vicryl [id number] interrupted suture. Next a right subcostal incision was made and dissection carried down through the soft tissue and musculature and fascia and the abdomen was opened. The bowel was packed inferiorly. As I began taking down the gallbladder from a top-down approach I identified that the gallbladder was very stuck down onto the portal structures. I opened the anterior surface of the gallbladder and further identified the cystic duct. There appeared to be a Mirizzi type syndrome with the gallbladder intimately adherent down to the portal structures. The neck of the gallbladder was transected leaving the cystic duct and place. The gallbladder was then removed from the gallbladder fossa and passed off the field with the stones. The cholangiocatheter was then inserted through the cystic duct and confirmed its position. Appeared to be a fairly short cystic duct. Choledochotomy identified. It was on the common bile duct and was slightly extended with Erwin scissors. The choledocho scope was then inserted and advanced distally all the way into the small bowel and there were no stones. It appeared to be widely patent. The choledocho scope was then inserted into the common hepatic up to the level of the bifurcation of the right and left hepatic ducts which were visualized. I then slowly withdrew and found no stones in the cystic duct entrance was identified. The choledocho scope was then removed and a T-tube was placed into the common bile duct. The common bile duct was resecured around the T-tube using interrupted 4-0 PDS sutures. Completion cholangiogram performed and there was prompt filling of the common bile duct intra-and extrahepatic ducts with no filling defects identified. Contrast rapidly entered the small bowel. There was no leaking around the tube. I then oversewed the cystic duct using 3-0 Vicryl at the level that it entered the bladder. A 10 Divehi flat Kamaljit drain was then placed in the gallbladder fossa. The abdomen was thoroughly irrigated and suction there was good hemostasis. The fascia was then closed in layers using #1 Prolene suture. The drain and T-tube were secured with 2-0 nylon suture. Wounds were thoroughly irrigated and suctioned the skin was closed with magdalena. Sterile dressings applied and the patient was extubated and taken recovery room in stable condition. All lap and needle counts were correct at the end of the case. X I'm adding modifier 22 for the extensive time and effort required beyond a normal procedure of this type. This was secondary to the Mirizzi syndrome which added difficulty to the case requiring choledochoscopy and T-tube placement. This easily doubled the operative time. Anesthesia: GETA Surgeon / Physician: Elias Vick Media Reporter: John Argueta Estimated blood loss: other (50 mL) Specimens: other (gallbladder) Condition: stable Disposition: PACU Results - Labs CBC & BMP: 08/10/16 05:04 08/10/16 05:04 Discharge Plan - Discharge Medications No Action Simvastatin 20 mg PO BEDTIME Losartan/Hydrochlorothiazide [Losartan-Hctz 100-25 mg Tab] 1 each PO DAILY Rasagiline [Azilect] 1 mg PO DAILY - Follow Up or Referral - Forms/Instructions
--- NOTE | 2016-08-10 18:52 | Family Practice Progress Note ---
Family Practice - PN: Subj Interval history: Patient is status post open cholecystectomy and intraoperative cholangiogram. He is presently stable and doing well. He denies any chest pain shortness of breath or other related complaints. His vitals are stable. Patient seems comfortable at present. His a.m. labs revealed improvement in liver function studies and amylase and lipase as would be expected. We'll repeat labs in a.m.. Urine culture reveals greater than 100,000 colony count of Escherichia coli sensitive to Cipro. He is presently on IV Cipro. Hopefully he will continue to do well. Exam (Progress Note) - Constitutional Vitals: Period Temp Pulse Resp BP Sys/Martin Pulse Ox Last 24 Hr 97.6 F-99.5 F 68-84 16-20 118-154/69-88 92-98 General appearance: no acute distress - Head Head exam: Present: normal inspection - ENT ENT exam: Present: normal exam - Neck Neck exam: Present: normal inspection - Respiratory Respiratory exam: Present: clear to auscultation bilaterally - Cardiovascular Cardiovascular exam: Present: regular rate and rhythm - GI/Abdominal GI/Abdominal exam: Present: soft - Extremities Exam Extremities exam: Present: normal inspection, full ROM - Neurological Exam Neurological exam: Present: alert, oriented X3 - Skin Skin exam: Present: normal color Results - Labs CBC & BMP: 08/10/16 05:04 08/10/16 05:04 Assessment and Plan (1) common duct stone Status: Acute Assessment and plan: Will repeat additional studies this a.m. and consult GI Current Visit: Yes (2) Pancreatitis Status: Acute Assessment and plan: We'll order additional studies and repeat abnormal labs have consult GI Current Visit: Yes (3) Abdominal pain Status: Acute Assessment and plan: We'll order additional studies and consult GI Current Visit: Yes (4) hyperlipidemia Status: Chronic Assessment and plan: Stable at present Current Visit: Yes (5) status post carcinoma prostate Status: Chronic Assessment and plan: Prostate has remained stable Current Visit: Yes (6) Parkinson's disease Status: Chronic Assessment and plan: Stable at present Current Visit: Yes
[2016-08-10] MEDS: SIMVASTATIN 20 MG TABLET PO SCH (22:06)
[2016-08-11] MEDS: SODIUM CHLOR 0.9% KCL 20 MEQ 20 MEQ/1,000 ML BAG IV SCH ×4 (01:28→17:00)
[2016-08-11] MEDS: CIPROFLOXACIN INJ 400 MG in PREMIX 1 EACH IV SCH ×2 (05:22→17:30)
[2016-08-11 05:37] LABS: Eosinophils % 0.3 % (0.00-10.9); Hematocrit 35.1 VOL% (42.0-52.0); Hemoglobin 11.3 GM/DL (14.0-18.0); Immature Granulocytes % 0.4 %; Immature Granulocytes Absolute 0.03 #; Lymphocytes # 1.1 10*3/uL (1.4-4.0); Lymphocytes % 13.5 % (21.2-54.2); Mean Corpuscular HGB Conc 32.2 GM/DL (32-36); Mean Corpuscular Hemoglobin 28 PG (27-34); Mean Corpuscular Volume 85.4 FL (87-102); Mean Platelet Volume 11.6 FL (9.6-12.0); Monocytes # 0.8 10*3/uL (0.11-0.8); Monocytes % 9.6 % (1.7-12.7); Neutrophils % 76.2 % (38.7-73.9); Platelet Count 165 10*3/uL (130-400); Red Blood Count 4.11 10*6/uL (3.8-5.5); Red Cell Distribution Width 14.6 % (9.3-17.3); White Blood Count 7.9 10*3/uL (4.5-13.71)
[2016-08-11 06:12] LABS: Albumin 2.7 G/DL (3.4-5.0); Bilirubin,Total 1.4 MG/DL (0.2-1.0); Calcium 8.6 MG/DL (8.5-10.1); Magnesium 1.7 MG/DL (1.8-2.4); Osmolality,Calculated 280.1 MOS/KG (273-304); Potassium 3.6 MMOL/L (3.5-5.1); Total Protein 6.1 G/DL (6.4-8.3)
[2016-08-11] MEDS ORDERED: MAGNESIUM SULF RIDER 1 GM in PREMIX 1 EACH IV ONE (07:40)
[2016-08-11] MEDS: RASAGILINE 0.5 MG TABLET PO SCH (08:47)
[2016-08-11] MEDS: LOSARTAN/HCTZ 50-12.5 MG TABLET PO SCH (08:47)
[2016-08-11] MEDS: DOCUSATE SODIUM 100 MG CAPSULE PO SCH ×2 (08:47→21:00)
[2016-08-11] MEDS: MAGNESIUM CHLORIDE 64 MG TABLET PO SCH ×2 (08:48→21:00)
[2016-08-11] MEDS: PANTOPRAZOLE 40 MG VIAL IV SCH (08:48)
--- NOTE | 2016-08-11 09:06 | Event Note ---
Doing well. He is tolerated a clear liquids. His only complaint is of the sore throat. He has no nausea or vomiting. Afebrile vital signs stable. Abdomen is soft and appropriately tender. Protuberant but I don't detect any significant distention. He has good bowel sounds. Passing flatus. Incisions look good. T-tube with bilious output. ALEX drain with small amount of serosanguineous fluid. I don't see any bowel in the ALEX drain. Plan: Advance to soft diet. Ambulate today. If he does well and his pain is controlled he may be able to go home tomorrow. We will leave the T-tube in place upon discharge. I'll check in on him tomorrow.
[2016-08-11] MEDS: LACTATED RINGERS 1,000 ML IV SCH (09:25)
--- NOTE | 2016-08-11 09:40 | Gastrointestinal Progress Note ---
<Yara Parks - Last Filed: 08/11/16 09:38> Assessment and Plan (1) Abdominal pain Status: Acute Assessment and plan: 08/11-Post op day 2 open alvaro. LFTs mildly trending down. Lipase down. Plan and addendum to follow by Dr Mcbride. 08/10-Immediate post op open cholecystectomy, intraoperative cholangiogram. LFTs trending down as well as lipase. Plan and addendum to follow by Dr Mcbride. 08/08-3 day history of upper abd pain radiating to LUQ. Findings on admission of pancreatitis and CT findings of dilated CBD with elevated lipase and LFTs. Abd US an HIDA scan pending at present time. Plan and addendum to follow by DR Mcbride. Current Visit: Yes Gastroenterology - PN: Subj Interval history: CC: Abd pain Pt is awake and alert sitting up in bed. States he is feeling about the same at this time however having expected post operative pain. He has a poor appetite at this time with some nausea but denies any vomiting. Abdomen is soft, tender to palpation with hypoactive bowel sounds noted. T-tube with moderate about of bilious drainage noted. LFTs are slowly trending down today with slight increase in bilirubin at 1.4. Lipase down at 256. ROS: Denies SOB or chest pain Exam (Progress Note) - Constitutional Vitals: Period Temp Pulse Resp BP Sys/Martin Pulse Ox Last 24 Hr 97.6 F-98.8 F 70-84 16-20 131-154/79-94 91-96 General appearance: normal weight, no acute distress - Head Head exam: Present: normal inspection, normocephalic - Eye Eye exam: Present: other (lids and conjunctiva unremarakble). Absent: scleral icterus - ENT ENT exam: Present: normal exam, normal oropharynx - Neck Neck exam: Present: normal inspection - Respiratory Respiratory exam: Present: clear to auscultation bilaterally. Absent: rales, rhonchi, wheezes - Cardiovascular Cardiovascular exam: Present: regular rate and rhythm. Absent: diastolic murmur , JVD, systolic murmur - GI/Abdominal GI/Abdominal exam: Present: hypoactive bowel sounds, tenderness, soft. Absent: ascites, distended, mass, organomegaly - Extremities Exam Extremities exam: Present: normal inspection, full ROM - Back Exam Back exam: Present: normal inspection - Neurological Exam Neurological exam: Present: alert, oriented X3 - Psychiatric Psychiatric exam: Present: normal affect, normal mood - Skin Skin exam: Present: normal color, warm, dry Results - Labs CBC & BMP: 08/11/16 04:15 08/11/16 04:15 Lab Results: I have reviewed the past 24 hour labs <Richard Mcbride - Last Filed: 08/11/16 18:02> Exam (Progress Note) - Constitutional Vitals: Period Temp Pulse Resp BP Sys/Martin Pulse Ox Last 24 Hr 98.4 F-98.9 F 70-78 16-20 136-156/84-97 91-93 Results - Labs CBC & BMP: 08/11/16 04:15 08/11/16 04:15
--- NOTE | 2016-08-11 12:20 | Pathology Report from [facility] ---
ACCESSION # : [id number] PATIENT NAME : Alie Garnett ORDERING DR : Elias Vick MD CLINICAL HX: Choledocholithiasis POST-OP DX: Same SPECIMEN INFO: Gallbladder & stones GROSS DESCRIPTION: The specimen is received in formalin labeled with the patient 's name and consists of a fragmented gallbladder which collectively measures 9.5 x 2.5 cm. The serosa is markedly erythematous. The wall averages 0.5 cm in thickness. The mucosa is erythematous and somewhat ulcerated. Received separately in the container are multiple faceted black smooth stones collectively measuring 3.0 x 2.4 cm. The largest stone measures up to 0.4 cm. Co [employer] sections submitted in one cassette. DIAGNOSIS FOR ALIE GARNETT: GALLBLADDER, CHOLECYSTECTOMY: Acute and chronic cholecystitis; cholelithiasis. SERVICE DATE: 08/10/2016 REPORT DATE: 08/11/2016 PATHOLOGIST: Torres Meyers M.D. MTDBrianne
--- NOTE | 2016-08-11 18:09 | Family Practice Progress Note ---
Family Practice - PN: Subj Interval history: Patient is doing quite well day . He was started on diet today. He denies any new complaints. His lab studies have improved today. His examination is stable at present. If patient does well possible discharge in a.m. Exam (Progress Note) - Constitutional Vitals: Period Temp Pulse Resp BP Sys/Martin Pulse Ox Last 24 Hr 98.4 F-98.9 F 70-78 16-20 136-156/84-97 91-93 Results - Labs CBC & BMP: 08/11/16 04:15 08/11/16 04:15 Assessment and Plan (1) common duct stone Status: Acute Assessment and plan: Will repeat additional studies this a.m. and consult GI Current Visit: Yes (2) Pancreatitis Status: Acute Assessment and plan: We'll order additional studies and repeat abnormal labs have consult GI Current Visit: Yes (3) Abdominal pain Status: Acute Assessment and plan: We'll order additional studies and consult GI Current Visit: Yes (4) hyperlipidemia Status: Chronic Assessment and plan: Stable at present Current Visit: Yes (5) status post carcinoma prostate Status: Chronic Assessment and plan: Prostate has remained stable Current Visit: Yes (6) Parkinson's disease Status: Chronic Assessment and plan: Stable at present Current Visit: Yes
[2016-08-11] MEDS: SIMVASTATIN 20 MG TABLET PO SCH (21:00)
[2016-08-12] MEDS: CIPROFLOXACIN INJ 400 MG in PREMIX 1 EACH IV SCH (05:17)
[2016-08-12] MEDS: SODIUM CHLOR 0.9% KCL 20 MEQ 20 MEQ/1,000 ML BAG IV SCH (05:18)
[2016-08-12 07:03] LABS: Basophils % 0.2 % (0.0-0.8); Eosinophils # 0.1 10*3/uL (0.0-0.87); Eosinophils % 1.2 % (0.00-10.9); Hematocrit 33.7 VOL% (42.0-52.0); Hemoglobin 11.2 GM/DL (14.0-18.0); Immature Granulocytes % 0.5 %; Immature Granulocytes Absolute 0.03 #; Lymphocytes # 0.8 10*3/uL (1.4-4.0); Lymphocytes % 14.1 % (21.2-54.2); Mean Corpuscular HGB Conc 33.2 GM/DL (32-36); Mean Corpuscular Hemoglobin 28 PG (27-34); Mean Corpuscular Volume 84.5 FL (87-102); Mean Platelet Volume 10.8 FL (9.6-12.0); Monocytes # 0.5 10*3/uL (0.11-0.8); Monocytes % 8.5 % (1.7-12.7); Neutrophils # 4.4 10*3/uL (1.4-7.4); Neutrophils % 75.5 % (38.7-73.9); Platelet Count 174 10*3/uL (130-400); Red Blood Count 3.99 10*6/uL (3.8-5.5); Red Cell Distribution Width 14.2 % (9.3-17.3); White Blood Count 5.9 10*3/uL (4.5-13.71)
[2016-08-12 07:29] LABS: Albumin 2.8 G/DL (3.4-5.0); Bilirubin,Direct 0.3 MG/DL (0.0-0.20); Bilirubin,Indirect 0.4 MG/DL (0.0-1.0); Bilirubin,Total 0.7 MG/DL (0.2-1.0)
--- NOTE | 2016-08-12 08:04 | Event Note ---
Afebrile vital signs stable. Patient is doing well with minimal pain at the incision. He is tolerating diet and has been ambulating. He feels good and wants to go home. On exam his abdomen is soft and nontender and nondistended. Incisions look good. T-tube in place with normal-appearing bile. ALEX drain has minimal serosanguineous output. Labs reviewed and his bilirubin is normal. Plan: He can be discharged from my standpoint. He will keep his ALEX drain and follow-up with me on Monday for removal. I stressed the importance of being mindful of his T-tube and keeping it secure. The nurses will teach him how to empty his drains. He was instructed to call for any nausea vomiting worsening abdominal pain change in color of the drainage, redness or drainage of the incisions, or any other concern. He is given a prescription for [place].
--- NOTE | 2016-08-12 10:04 | Discharge Summary ---
Hospital Course - Hospital Course Hospital Course: Mr. Garnett is a 71 year old male 71-year-old black male well known to me admitted to the emergency room with 3 day history of progressive abdominal pain. Patient states she's had no bowel movements in the last 3 days. Denies nausea vomiting diarrhea or other related complaints. His had a moderate amount of mid abdominal pain. Denies other related complaints.. Patient was seen emergency room and hepatic enzymes were elevated as well as amylase at 3035 and lipase at 23,247. Also noted to have elevated liver enzymes. Abdominal CT revealed intrahepatic and extrahepatic biliary dilatation with no obvious pancreatic mass. Common duct stone was considered. Also noted to have some suspected gallstones with sludge in the gallbladder. View of degree of symptoms patient was admitted for further evaluation therapy Hospital course patient was admitted hospital lab and x-ray studies obtained. His liver function studies were significantly elevated on admission. His amylase was 3035 with a lipase of 23,240. Patient was seen in consultation by Dr. Mcbride a local GI physician. It was felt that patient probably had a common duct stone creating a gallstone pancreatitis. An ERCP was performed and the common duct was drained. Biliary scan revealed nonvisualization of the gallbladder. Also noted to have multiple stones. Patient seen by Dr. Vick a local surgeon. He was taken to surgery and an initial laparoscopic cholecystectomy was attempted but in view of the amount of scar tissue an open cholecystectomy was required. Patient tolerated procedure well and has had an uneventful postoperative course. Will discharge patient to home care. He has ET tube in place and will be scheduled for a follow-up appointment with Dr. Vick on Monday. I will plan to see the patient in 2 weeks for follow-up. Will have him call or return to the emergency room if problems develop Diagnosis - Discharge Diagnosis (1) common duct stone Status: Acute (2) Cholelithiasis and acute cholecystitis with obstruction Status: Acute (3) Pancreatitis Status: Acute (4) Abdominal pain Status: Acute (5) hyperlipidemia Status: Chronic (6) status post carcinoma prostate Status: Chronic (7) Parkinson's disease Status: Chronic Specialty Discharge - Follow Up or Referrals Follow up with: Elias Vick MD [Physician] - 08/17/16 9:45 am Discharge Plan - Discharge Data Disposition: Disch To Home/Self Care Condition at Discharge: Stable Discharge Diet: advance to your usual diet Activity: resume usual activities as tolerated Hygiene: no restrictions Weight Bearing at Discharge: weight bear as tolerated Contact your physician if you experience:: fever over 101, Shortness of breath - Discharge Medications New HYDROcodone/ACETAMIN 5-325 [[place] 5-325] 2 tablet PO Q4H PRN #30 tablet PRN Reason: Pain Moderate (4-7) Magnesium Chloride [Slow Mag] 64 mg PO BID #60 tablet Continue Simvastatin 20 mg PO BEDTIME Losartan/Hydrochlorothiazide [Losartan-Hctz 100-25 mg Tab] 1 each PO DAILY Rasagiline [Azilect] 1 mg PO DAILY - Follow Up or Referral Follow Up: Elias Vikc MD [Physician] - 08/17/16 9:45 am Leonard Howard DO [Primary Care Provider] - 2 Weeks - Forms/Instructions Exam - Constitutional Vitals: Period Temp Pulse Resp BP Sys/Martin Pulse Ox Last 24 Hr 98.2 F-99.0 F 70-78 16-18 146-156/92-98 91-94 General appearance: no acute distress - Head Head exam: Present: normal inspection - ENT ENT exam: Present: normal exam - Neck Neck exam: Present: normal inspection - Respiratory Respiratory exam: Present: clear to auscultation bilaterally - Cardiovascular Cardiovascular exam: Present: regular rate and rhythm - GI/Abdominal GI/Abdominal exam: Present: soft - Extremities Exam Extremities exam: Present: normal inspection - Back Exam Back exam: Present: normal inspection - Neurological Exam Neurological exam: Present: alert - Psychiatric Psychiatric exam: Present: normal affect Discharge Results Labs on day of discharge: Labs from last 24 hours 08/12/16 08/12/16 08/12/16 06:49 06:49 06:49 WBC RBC Hgb Hct MCV MCH MCHC RDW Plt Count MPV Neut % (Auto) Lymph % (Auto) [place] % (Auto) Eos % (Auto) Baso % (Auto) Neut # (Auto) Lymph # (Auto) [place] # (Auto) Eos # (Auto) Baso # (Auto) Immature Gran % Nucleated RBC % Immature Gran # Nucleated RBCs # Magnesium 1.7 L Total Bilirubin 0.70 Direct Bilirubin 0.3 H Indirect Bilirubin 0.4 AST 53 H ALT 82 H Alkaline Phosphatase 139 H Total Protein 6.0 L Albumin 2.8 L Amylase 74 Lipase 489.0 H D 08/12/16 06:49 WBC 5.9 RBC 3.99 Hgb 11.2 L Hct 33.7 L MCV 84.5 L MCH 28 MCHC 33.2 RDW 14.2 Plt Count 174 MPV 10.8 Neut % (Auto) 75.5 H Lymph % (Auto) 14.1 L [place] % (Auto) 8.5 Eos % (Auto) 1.2 Baso % (Auto) 0.2 Neut # (Auto) 4.4 Lymph # (Auto) 0.8 L [place] # (Auto) 0.5 Eos # (Auto) 0.1 Baso # (Auto) 0.0 Immature Gran % 0.5 Nucleated RBC % 0.0 Immature Gran # 0.03 Nucleated RBCs # 0.00 Magnesium Total Bilirubin Direct Bilirubin Indirect Bilirubin AST ALT Alkaline Phosphatase Total Protein Albumin Amylase Lipase DS: Provider Date of admission: 08/08/16 02:04 Primary care physician: Leonard Howard DO Attending physician on admission: Leonard Howard DO Consults: 08/08/16 02:59 Consult to Pharmacy [CONS] Routine Reason for Pharmacy Consult: Adjust Meds Renal Funct 08/08/16 07:51 Consult to Physician [CONS] Routine Comment: pancreatitus, pt requested Consulting Provider: Richard Mcbride 08/09/16 16:32 Consult to Physician [CONS] Routine Comment: Consulting Provider: Elias Vick Consult to Specialist Group: Surgery Discharging clinician: Leonard Howard DO
[2016-08-12] MEDS: RASAGILINE 0.5 MG TABLET PO SCH (11:04)
[2016-08-12] MEDS: DOCUSATE SODIUM 100 MG CAPSULE PO SCH (11:04)
[2016-08-12] MEDS: LOSARTAN/HCTZ 50-12.5 MG TABLET PO SCH (11:05)
[2016-08-12] MEDS: MAGNESIUM CHLORIDE 64 MG TABLET PO SCH (11:08)
[2016-08-12] MEDS: PANTOPRAZOLE 40 MG VIAL IV SCH (11:11)
[2016-08-12 20:31] VITALS: BP 126/78
== END 2016-08-12 14:15 | disposition home or self-care (01) | DRG 411 ==
LOC: EDUNIT# → EDBD → N.ED 00:02 → N.EDINP 02:04 → N.5E 02:42 → N.TELES 03:08 → N.3E 08-10 17:09
PROVIDERS: ADMIT Family Medicine; ATTEND Family Medicine
PROC: ERCPWSP (ICD-10-PCS; 2016-08-09 09:05)
PROC: LAPCHOL (2016-08-10 07:00)

== ENCOUNTER 2021-10-04 18:57 | Inpatient (IN) ==
[2021-10-05] MEDS ORDERED: SODIUM CHLORIDE 0.9% 1,000 ML IV STA (00:22)
[2021-10-05 01:15] LABS: Basophils % 0.8 % (0.0-0.8); Eosinophils # 0.2 10*3/uL (0.0-0.87); Eosinophils % 4.2 % (0.00-10.9); Hematocrit 46.4 VOL% (42.0-52.0); Hemoglobin 15.3 GM/DL (14.0-18.0); Immature Granulocytes % 0.3 %; Immature Granulocytes Absolute 0.01 #; Lymphocytes # 1.3 10*3/uL (1.4-4.0); Lymphocytes % 33.9 % (21.2-54.2); Mean Corpuscular Volume 87.1 FL (87-102); Mean Platelet Volume 11.1 FL (9.6-12.0); Monocytes % 9.5 % (1.7-12.7); Neutrophils % 51.3 % (38.7-73.9); Platelet Count 162 T/CUMM (130-400); Red Blood Count 5.33 MC/CUMM (3.8-5.5); Red Cell Distribution Width 13.5 % (9.3-17.3); White Blood Count 3.8 T/CUMM (4-12)
[2021-10-05] MEDS ORDERED: ACETAMINOPHEN 325 MG TABLET PO PRN (01:22)
[2021-10-05] MEDS ORDERED: ONDANSETRON 4 MG/2 ML VIAL IV PRN (01:22)
[2021-10-05] MEDS ORDERED: ENOXAPARIN 100 MG/ML SYRINGE SUBCUT STA (01:24)
[2021-10-05] MEDS ORDERED: ASPIRIN 325 MG TABLET PO STA (01:25)
[2021-10-05 01:27] LABS: Hyaline Casts,Urine 6 /LPF (0-3); Mucus,Urine Few /LPF (Occasional); RBC,Urine 1 /HPF (0-4); Squamous Epithelial Cell,Urine Occasional /HPF (0-10); Urine Appearance Clear (Clear); Urine Color Yellow (Yellow)
[2021-10-05 01:28] LABS: Bilirubin,Urine Small mg/dL (Negative); Blood, Urine Negative (Negative); Glucose,Urine (UA) Negative (Negative); Ketones,Urine Trace mg/dL (Negative); Nitrite,Urine Negative (Negative); Protein,Urine 30 MG/DL; Urine Specific Gravity > 1.030 (1.001-1.035); Urine Urobilinogen 0.2 EU/DL (<2.0)
[2021-10-05 01:46] LABS: Calcium 9.5 MG/DL (8.5-10.1); Osmolality,Calculated 280.7 MOS/KG (273-304); Potassium 3.6 MMOL/L (3.5-5.1)
[2021-10-05] MEDS: PANTOPRAZOLE 40 MG TABLET PO SCH (09:06)
[2021-10-05] MEDS: DOCUSATE SODIUM 100 MG CAPSULE PO SCH ×2 (09:06→20:31)
[2021-10-05] MEDS: cloNIDine 0.1 MG TABLET PO SCH ×2 (09:17→20:31)
[2021-10-05] MEDS: ASPIRIN EC 81 MG TABLET PO SCH (09:17)
[2021-10-05] MEDS: CLOPIDOGREL 75 MG TABLET PO SCH (09:18)
[2021-10-05] MEDS: CARBIDOPA/LEVODOPA 25-100 MG TABLET PO SCH (18:03)
[2021-10-05] MEDS ORDERED: ATORVASTATIN 40 MG TABLET PO SCH (21:00)
[2021-10-05] MEDS: INSULIN LISPRO 100 UNIT/ML SUBCUT SCH (23:07)
[2021-10-06 05:27] LABS: Basophils # 0.1 10*3/uL (0.0-0.2); Basophils % 1.8 % (0.0-0.8); Eosinophils # 0.2 10*3/uL (0.0-0.87); Eosinophils % 5.2 % (0.00-10.9); Hematocrit 41.8 VOL% (42.0-52.0); Immature Granulocytes % 0.3 %; Immature Granulocytes Absolute 0.01 #; Lymphocytes # 1.3 10*3/uL (1.4-4.0); Lymphocytes % 40.5 % (21.2-54.2); Mean Corpuscular HGB Conc 33.5 GM/DL (32-36); Mean Corpuscular Volume 84.6 FL (87-102); Mean Platelet Volume 11.3 FL (9.6-12.0); Monocytes % 10.1 % (1.7-12.7); Neutrophils % 42.1 % (38.7-73.9); Platelet Count 144 T/CUMM (130-400); Red Blood Count 4.94 MC/CUMM (3.8-5.5); Red Cell Distribution Width 13.2 % (9.3-17.3); White Blood Count 3.3 T/CUMM (4-12)
[2021-10-06 06:04] LABS: Albumin 2.8 G/DL (3.4-5.0); Bilirubin,Total 0.6 MG/DL (0.20-1.00); Calcium 8.9 MG/DL (8.5-10.1); Osmolality,Calculated 278.7 MOS/KG (273-304); Potassium 3.9 MMOL/L (3.5-5.1); Thyroid Stimulating Hormone 0.727 uIU/ml (0.358-3.74); Total Protein 6.2 G/DL (6.4-8.2)
[2021-10-06] MEDS ORDERED: ENOXAPARIN 40 MG/0.4 ML SYRINGE SUBCUT SCH (09:00)
[2021-10-06] MEDS ORDERED: LOSARTAN 50 MG TABLET PO SCH (09:00)
[2021-10-06] MEDS: ASPIRIN EC 81 MG TABLET PO SCH (09:43)
[2021-10-06] MEDS: INSULIN LISPRO 100 UNIT/ML SUBCUT SCH ×3 (09:43→17:35)
[2021-10-06] MEDS: cloNIDine 0.1 MG TABLET PO SCH (09:43)
[2021-10-06] MEDS: CLOPIDOGREL 75 MG TABLET PO SCH (09:43)
[2021-10-06] MEDS: PANTOPRAZOLE 40 MG TABLET PO SCH (09:44)
[2021-10-06] MEDS: CARBIDOPA/LEVODOPA 25-100 MG TABLET PO SCH ×3 (09:44→16:43)
[2021-10-06] MEDS: DOCUSATE SODIUM 100 MG CAPSULE PO SCH (10:29)
[2021-10-06 17:09] VITALS: BP 167/102
== END 2021-10-06 19:27 | disposition home or self-care (01) | DRG 312 ==
LOC: N.ED 18:57 → N.EDINP 10-05 01:22 → N.3E 10-05 14:59
PROVIDERS: ADMIT Family Medicine; ATTEND Family Medicine